=== PATIENT | female | born 1990 | race Caucasian/White ===

== ENCOUNTER 2021-06-30 18:09 | Emergency (ER) | payer OTHER ==
[2021-06-30] MEDS ORDERED: AMOX/CLAV 875 MG/125 MG TABLET PO STA (18:19)
[2021-06-30 18:20] VITALS: BP 137/92
--- NOTE | 2021-06-30 18:20 | ED Physician Documentation ---
PD HPI UPPER EXT INJURY - Stated complaint Stated Complaint: CAT BITE LT HAND - Chief complaint Chief Complaint: Wound - History obtained from History obtained from: Patient (30-year-old woman has two cat bites on the left hand and a small one on the right forearm from a feral cat that she was trying to trap this prior to arrival. She is up-to-date on tetanus.) Review of Systems Constitutional: reports: Reviewed and negative Throat: reports: Reviewed and negative Cardiac: reports: Reviewed and negative Respiratory: reports: Reviewed and negative PD PAST MEDICAL HISTORY - Present Medications Home Medications: Ambulatory Orders Medication Instructions Recorded Confirmed Amox/Clav 875/125 [Augmentin] 1 each PO Q12H #20 tablet 06/30/21 - Allergies Allergies/Adverse Reactions: Allergies Allergy/AdvReac Type Severity Reaction Status Date / Time lisdexamfetamine Allergy Respiratory Verified 06/30/21 18:18 [From Vyvanse] soy Allergy Respiratory Verified 06/30/21 18:18 PD ED PE NORMAL - Vitals Vital signs reviewed: Yes - General General: Alert and oriented X 3, No acute distress - Extremities Extremities: Other (To deep looking puncture wounds between the second and third dorsal metacarpals of the left hand without distal neurovascular compromise or tenderness.) - Neuro Neuro: Alert and oriented X 3, Normal speech Results - Vitals Vitals: Vital Signs - 24 hr 06/30/21 18:18 Temperature 36.7 C Heart Rate 82 Respiratory 18 Rate Blood Pressure 137/92 H O2 Saturation 100 Oxygen O2 Source Room air Departure - Departure Disposition: 01 Home, Self Care Clinical Impression: Cat bite of left hand Qualifiers: Encounter type: initial encounter Qualified Code(s): S61.452A - Open bite of left hand, initial encounter; W55.01XA - Bitten by cat, initial encounter Condition: Good Record reviewed to determine appropriate education?: Yes Instructions: ED Bite Animal General Prescriptions: Amox/Clav 875/125 [Augmentin] 1 each PO Q12H #20 tablet Comments: Return if you develop increased pain, redness, swelling, drainage, fevers. For wound care soap and water and a Band-Aid is really all that she need to do.
== END 2021-06-30 18:35 | disposition home or self-care (01) ==
LOC: ED 18:09
DX: S61.452A Open bite of left hand, initial encounter (principal); S51.852A Open bite of left forearm, initial encounter; W55.01XA Bitten by cat, initial encounter; Y93.89 Activity, other specified
CPT/HCPCS: 99282; 99283; A9270

== ENCOUNTER 2022-03-04 11:08 | Outpatient (CLI) | payer OTHER ==
[2022-03-04 12:01] VITALS: BP 121/81
--- NOTE | 2022-03-04 12:01 | SLEEP CARE CONSULTATION ---
Information from patient questionnaire entered by Jourdan Stanlye MA. I have reviewed and concur with the information entered by Jourdan Stanley MA. This document represents the service I personally performed and the decisions made by , Shayy Mayo ARNP. History of Present Illness Service Date and Time: 03/04/2022 1108 Reason for Visit: New patient (ONSET 08/03/2011, NO PRIOR SS, ) Chief Complaint: reports: Insomnia, Unrefreshed sleep, Fatigue, Frequent aw akenings at night Date of Onset: MOST OF HER LIFE Usual bedtime: 930-1030 PM Time it takes to fall asleep: 20 MIN - 2 HOURS Snores at night: No Observed to quit breathing while asleep: No Sleeps alone due to snoring: No Number of times waking at night: 2-3 Reasons for waking at night: reports: Bathroom, Other (noise, unknown reasons). denies: Choking, Snoring, Gasping for air Toss, Turn, or Twitch while sleeping: Yes (most before she falls asleep) Recalls having dreams: Yes (sometimes; 40-50% of the time) Usually gets out of bed at: 8401-4615 Feels refreshed in the morning: No Morning headache: No Sleepy or fatigued during the day: Yes Ever fallen asleep while driving: No Takes day naps: No Dreams during day naps: No Prior sleep studies: No Additional HPI information: I had the pleasure of seeing CHANTELL STRONG today regarding the possibility of her having a sleep disorder. Her current complaints are insomnia, unrefreshed sleep, fatigue and frequent night awakenings. She states her psychiatrist has sent her here for evaluation because of her daytime fatigue. She states she lays down between 9:30-10:30 PM and it varies on going to sleep but usually about an hour. She has not been told that she snores, gasps for air or pauses in breathing in her sleep. She does wake up 2-3 times a night and she may be able to go back to sleep withing 30-60 minutes on average. - Parasomnia Symptoms Ever been unable to move upon waking from sleep: No Walks in sleep: No Talks in sleep: No Ever acted out dreams in sleep: No Ever felt weak in the knees when startled or emotional: No Bothered by creepy, crawly, restless sensations in legs: No Problems with memory or concentration: Yes (both; has ADHD too) Subjective Initial [place] Sleepiness Scale score: 8 (03/04/2022) Past Medical History Past Medical History: reports: Anxiety, Asthma, Depression, Attention deficit (Inattentive) Social History The patient's occupation is a UNEMPLOYED. Patient is and lives in . Have you smoked in the past 12 months: No Alcohol use: No Caffeine use: Yes Caffeine amount and frequency: 2-3 X DAILY; depends on how well my ADHD meds are working Family History Family history of sleep disordered breathing: Yes Family Hx Sleep Apnea: Mother: Snoring Allergies and Home Medications Drug allergies reviewed: Yes (Latex, Soy) Home medication list reviewed: Yes Allergy and home medication list: Allergies latex Allergy (Verified 06/30/21 18:20) Respiratory soy Allergy (Verified 06/30/21 18:18) Respiratory Medications: Guanfacine 2 mg nightly Belsomra 20 mg nightly Vyvanse 70 mg in AM Trintellix 20 mg in AM Advair 100/50, as needed Albuterol, as needed Review of Systems Weight loss over past 5 years: 60 kat lbs Respiratory: reports: shortness of breath, wheeze Neurological: reports: headaches, head trauma (fell off horse as a child, broke arm, ? hit head (4-5 yrs old)) Psychiatric: reports: Attention Deficit Hyperactivity, anxiety, depression Ear/Nose/Throat: reports: nasal congestion, dry mouth/throat (usually in evening, sometimes in afternoon), wisdom teeth removed. denies: tonsillectomy Endocrine: reports: sluggishness Musculoskeletal: reports: joint pain, back pain, muscle pain or cramping Immunologic: reports: sneezing, allergies to food or environment (soy, grass, pollen, bugs (cockroaches), birds, rodents, cat dander) Physical Exam Vital signs obtained and entered by: STANLEY MARRUFO Blood Pressure: 121/81 (resp 20, pulse 85, right) Cuff size: wrist Heart Rate: 105 O2 Saturation: 96 (paper mask) Height: 5 ft 5 in Weight: 232 lb 8 oz (clothes) Body Mass Index: 38.7 BMI Classification: Obese Neck circumference: 14 (inches) Mouth and throat: normal Soft palate: normal Hard palate: normal Uvula: normal Uvula visualization: 100% Mallampati Class I Tongue: enlarged in size with teeth chaudhary on lateral edges Tonsils: small Neck: normal w/o lymphadenopathy or thyromegaly Heart: regular rate and rhythm Lungs: clear bilaterally Impression and Plan 1. Suspected Obstructive Sleep Apnea-Hypopnea Syndrome, as suggested by a history of frequent awakening during the night, unrefreshed sleep, cognitive impairment, and excessive daytime sleepiness. Narrow oropharynx and obesity are common predisposing factors for obstructive sleep apnea-hypopnea syndrome. I recommend proceeding to polysomnography to confirm the diagnosis and to assess severity. If the patient has significant sleep disordered breathing, a manual CPAP titration study will also be performed to find the optimal treatment pressure. I informed the patient of what the sleep studies involve and after some discussion, obtained agreement to proceed. The pathophysiology of obstructive sleep apnea-hypopnea syndrome was discussed with the patient and health risks of cardiovascular and cerebrovascular disease if not treated. Risks of drowsy driving discussed in detail and patient advised to avoid long distance driving and to dross puller at the first sign of drowsiness. Patient agreed to plan. * Schedule polysomnography * Avoid long distance driving or driving when feeling sleepy. * Avoid alcohol, sedative and muscle relaxant around bedtime. * Attempt to lose weight. * Review instructions provided by trained office staff on how to prepare for the sleep study. * Return for follow-up after sleep study completed. Counseling Topics: Weight loss health impact Visit Type: In Office Time Spent with Patient (minutes): 33 Provider Statement: I spent 100% of the Face to Face Visit with the patient with greater than 50% spent counseling the patient and coordination of care.
== END 2022-03-04 11:09 | disposition home or self-care (01) ==
LOC: SC 11:08
PROVIDERS: ATTEND Nurse Practitioner Family
DX: G47.8 Other sleep disorders (principal); G47.10 Hypersomnia, unspecified; R53.83 Other fatigue; G47.00 Insomnia, unspecified; F32.A Depression, unspecified; E66.9 Obesity, unspecified; Z68.38 Body mass index [BMI] 38.0-38.9, adult
CPT/HCPCS: 99203; 99212

== ENCOUNTER 2023-01-02 19:54 | Emergency (ER) | payer OTHER ==
--- NOTE | 2023-01-02 20:29 | ED Physician Documentation ---
History of Present Illness - Stated complaint Stated Complaint: MHE - Chief complaint Chief Complaint: MHE - Additonal information Additional information: 32-year-old female presents emergency department for sudden suicidal thoughts. Patient has a longstanding history of depression. She states that she simply does not want to be alive anymore. However when she thinks about trying to kill herself she is afraid of any associated pain with the act. She has considered driving her vehicle into another car off the bridge, she is considered taking pills or even using weapons but is afraid of discomfort. She is and does have kids. She is not sure that her children are enough of the factor to keep her living. She has never been hospitalized. She is not certain if she would like to be hospitalized. Denies any drug or alcohol use. She does take Strattera, Rexulti and Trintellix in the management of her depression. She is followed by a psychiatrist but does not currently have a talk therapist. She believes that her psychiatrist was going to increase the dose of the Rexulti shortly. Review of Systems Constitutional: denies: Fever, Chills Nose: reports: Reviewed and negative Throat: reports: Reviewed and negative Cardiac: reports: Reviewed and negative Respiratory: reports: Reviewed and negative Musculoskeletal: reports: Reviewed and negative Neurologic: reports: Reviewed and negative Psychiatric: reports: Depressed, Suicidal, Anxiety. denies: Homicidal, Hallucinations PD PAST MEDICAL HISTORY - Present Medications Home Medications: Ambulatory Orders Medication Instructions Recorded Confirmed Albuterol Sulfate [Proair 90 mcg IH Q6HR PRN 01/02/23 01/02/23 Respiclick] Atomoxetine HCl [Strattera] 80 mg PO DAILY 01/02/23 01/02/23 Brexpiprazole [Rexulti] 0.5 mg PO HS 01/02/23 01/02/23 Cetirizine [ZyrTEC] 10 mg PO DAILY 01/02/23 01/02/23 Vortioxetine Hydrobromide 20 mg PO HS 01/02/23 01/02/23 [Trintellix] - Allergies Allergies/Adverse Reactions: Allergies Allergy/AdvReac Type Severity Reaction Status Date / Time latex Allergy Respiratory Verified 01/02/23 21:09 soy Allergy Respiratory Verified 01/02/23 21:09 - Social History Does the pt smoke?: No Smoking Status: Never smoker PD ED PE NORMAL - General General: Alert and oriented X 3, Well developed/nourished. No: No acute distress (Crying and tearful. Appears anxious) - Neck Neck: Supple, no meningeal sign, No adenopathy - Cardiac Cardiac: RRR, No murmur - Respiratory Respiratory: No respiratory distress, Clear bilaterally - Neuro Neuro: Alert and oriented X 3 Eye Opening: Spontaneous Motor: Obeys Commands Verbal: Oriented GCS Score: 15 - Psych Psych: Normal affect (Crying tearful affect. Endorses that she wants to but is afraid of pain associated with it. Does not necessarily contract for safety but does not have an active plan for SI) Results - Vitals Vitals: Vital Signs - 24 hr 01/02/23 21:14 Heart Rate 97 Respiratory 16 Rate Blood Pressure 142/81 H O2 Saturation 99 Oxygen O2 Source Room air - Labs Labs: Laboratory Tests 01/02/23 01/02/23 01/02/23 20:14 20:26 20:26 WBC 15.7 H RBC 4.39 Hgb 13.7 Hct 42.2 MCV 96.1 MCH 31.2 H MCHC 32.5 RDW 13.1 Plt Count 412 MPV 8.8 Neut # (Auto) 9.8 H Lymph # (Auto) 4.4 H [place] # (Auto) 0.8 Eos # (Auto) 0.6 Baso # (Auto) 0.1 Absolute Nucleated RBC 0.00 Nucleated RBC % 0.0 Sodium 138 Potassium 3.7 Chloride 101 Carbon Dioxide 25 Anion Gap 12.0 BUN 12 Creatinine 0.8 Estimated GFR (MDRD) 83 L Glucose 99 Calcium 8.7 Magnesium 1.8 Total Bilirubin 0.4 AST 22 ALT 28 Alkaline Phosphatase 108 Total Creatine Kinase 201 Total Protein 8.1 Albumin 4.1 Globulin 4.0 Albumin/Globulin Ratio 1.0 Lipase 30 TSH Urine Color YELLOW Urine Clarity HAZY Urine pH 5.5 Ur Specific [place] >=1.030 H Urine Protein NEGATIVE Urine Glucose (UA) NEGATIVE Urine Ketones NEGATIVE Urine Occult Blood NEGATIVE Urine Nitrite NEGATIVE Urine Bilirubin NEGATIVE Urine Urobilinogen 0.2 (NORMAL) Ur Leukocyte Esterase SMALL H Urine RBC 0-5 Urine WBC 6-10 H Ur Squamous Epith Cells MOD Squamous H Urine Bacteria Moderate H Ur Microscopic Review INDICATED Urine Culture Comments NOT INDICATED Urine HCG, Qual NEGATIVE Salicylates < 6.0 Urine Opiates Screen NEGATIVE Ur Oxycodone Screen NEGATIVE Urine Methadone Screen NEGATIVE Ur Propoxyphene Screen NEGATIVE Acetaminophen < 10 L Ur Barbiturates Screen NEGATIVE Ur Tricyclics Screen NEGATIVE Ur Phencyclidine Scrn NEGATIVE Ur Amphetamine Screen NEGATIVE U Methamphetamines Scrn NEGATIVE U Benzodiazepines Scrn NEGATIVE Urine Cocaine Screen NEGATIVE U Cannabinoids Screen NEGATIVE Ethyl Alcohol < 5.0 01/02/23 20:26 WBC RBC Hgb Hct MCV MCH MCHC RDW Plt Count MPV Neut # (Auto) Lymph # (Auto) [place] # (Auto) Eos # (Auto) Baso # (Auto) Absolute Nucleated RBC Nucleated RBC % Sodium Potassium Chloride Carbon Dioxide Anion Gap BUN Creatinine Estimated GFR (MDRD) Glucose Calcium Magnesium Total Bilirubin AST ALT Alkaline Phosphatase Total Creatine Kinase Total Protein Albumin Globulin Albumin/Globulin Ratio Lipase TSH 5.67 H Urine Color Urine Clarity Urine pH Ur Specific [place] Urine Protein Urine Glucose (UA) Urine Ketones Urine Occult Blood Urine Nitrite Urine Bilirubin Urine Urobilinogen Ur Leukocyte Esterase Urine RBC Urine WBC Ur Squamous Epith Cells Urine Bacteria Ur Microscopic Review Urine Culture Comments Urine HCG, Qual Salicylates Urine Opiates Screen Ur Oxycodone Screen Urine Methadone Screen Ur Propoxyphene Screen Acetaminophen Ur Barbiturates Screen Ur Tricyclics Screen Ur Phencyclidine Scrn Ur Amphetamine Screen U Methamphetamines Scrn U Benzodiazepines Scrn Urine Cocaine Screen U Cannabinoids Screen Ethyl Alcohol PD Medical Decision Making - ED course Complexity details: reviewed results, re-evaluated patient, d/w patient ED course: 3 to-year-old female presents emergency department for evaluation of depression and suicidal thoughts. She has no active plan and as she is afraid of pain does not feel that she would act on a plan but despite this has persistent thoughts of wishing she was . She is brought to the emergency department by a friend who Is hoping the patient can get more guidance in helping manage her depression. The patient does not want to be hospitalized at this time. Patient is taking Trintellix, Rexulti and Strattera for history of depression and ADHD. I did obtain the usual routine mental health labs and per my interpretation no acute worrisome findings. I do note a mild leukocytosis which I believe is stress marginalization. Given the late hour the day and the lack of social work at this time we will ask telepsych for evaluation. Patient may benefit from medication adjustment of her current meds. However if patient should wish to discharge from the emergency department voluntarily I feel that she can adequately contract for safety Patient will be signed out to my nighttime colleague to follow-up on any telepsych recommendations or further disposition of the patient
[2023-01-02 20:31] LABS: MUDS CUTOFF CONCENTRATIONS CUTOFF CONC BELOW:
[2023-01-02 20:34] LABS: BASOPHILS # (AUTO) 0.1 10^3/uL (0.0-0.1); BASOPHILS % (AUTO) 0.4 %; EOSINOPHILS # (AUTO) 0.6 10^3/uL (0.0-0.7); EOSINOPHILS % (AUTO) 3.6 %; HCT - HEMATOCRIT 42.2 % (37.0-47.0); HGB - HEMOGLOBIN 13.7 g/dL (12.0-16.0); LYMPHOCYTES # (AUTO) 4.4 10^3/uL (1.5-3.5); LYMPHOCYTES % (AUTO) 28.2 %; MEAN CORPUSCULAR HEMOGLOBIN 31.2 pg (27.0-31.0); MEAN CORPUSCULAR HGB CONC 32.5 g/dL (32.0-36.0); MEAN CORPUSCULAR VOLUME 96.1 fL (81.0-99.0); MEAN PLATELET VOLUME 8.8 fL (7.9-10.8); MONOCYTES # (AUTO) 0.8 10^3/uL (0.0-1.0); MONOCYTES % (AUTO) 4.9 %; NEUTROPHILS # (AUTO) 9.8 10^3/uL (1.5-6.6); NEUTROPHILS % (AUTO) 62.6 %; PLT - PLATELET COUNT 412 10^3/uL (130-450); RED BLOOD COUNT 4.39 10^6/uL (4.20-5.40); RED CELL DISTRIBUTION WIDTH 13.1 % (12.0-15.0); WHITE BLOOD COUNT 15.7 x10^3/uL (4.8-10.8)
[2023-01-02 20:41] LABS: BILIRUBIN,URINE NEGATIVE (NEGATIVE); GLUCOSE, URINE (UA) NEGATIVE (NEGATIVE); KETONES,URINE (UA) NEGATIVE (NEGATIVE); LEUKOCYTE ESTERASE, URINE SMALL (NEGATIVE); NITRITE,URINE NEGATIVE (NEGATIVE); OCCULT BLOOD,URINE NEGATIVE (NEGATIVE); PH,URINE 5.5 PH (5.0-7.5); PROTEIN,URINE NEGATIVE (NEGATIVE); UROBILINOGEN,URINE 0.2 (NORMAL) E.U./dL (NORMAL)
[2023-01-02 20:44] LABS: CLARITY,URINE HAZY (CLEAR); HCG UR QUAL NEGATIVE
[2023-01-02 20:52] LABS: ACETAMINOPHEN < 10 ug/mL (10-30); ALBUMIN 4.1 g/dL (3.2-5.5); ALKALINE PHOSPHATASE 108 IU/L (42-121); ALT ALANINE AMINOTRANSFERASE 28 IU/L (10-60); AST ASPARTATE AMINOTRANSFERASE 22 IU/L (10-42); BILIRUBIN,TOTAL 0.4 mg/dL (0.2-1.0); BUN - BLOOD UREA NITROGEN 12 mg/dL (6-20); CALCIUM 8.7 mg/dL (8.5-10.3); CARBON DIOXIDE - CO2 25 mmol/L (21-32); CHLORIDE 101 mmol/L (101-111); CK- CREATINE KINASE 201 IU/L (22-269); CREATININE 0.8 mg/dL (0.4-1.0); ETOH - ETHANOL < 5.0 mg/dL; GFR - MDRD 83 (>89); GLUCOSE 99 mg/dL (70-100); LIPASE 30 U/L (22-51); MAGNESIUM 1.8 mg/dL (1.7-2.8); POTASSIUM 3.7 mmol/L (3.5-5.0); SALICYLATE < 6.0 mg/dL; SODIUM 138 mmol/L (135-145); TOTAL PROTEIN 8.1 g/dL (6.7-8.2)
[2023-01-02 20:52] LABS: BACTERIA,URINE Moderate /HPF (None Seen); RBC,URINE 0-5 /HPF (0-5); SQUAMOUS EPITHELIAL CELL,UR MOD Squamous (<= Few)
[2023-01-02 21:08] LABS: AMPHETAMINE SCREEN,URINE NEGATIVE (NEGATIVE); BARBITURATE SCREEN,UR NEGATIVE (NEGATIVE); BENZODIAZEPINES SCREEN, URINE NEGATIVE (NEGATIVE); COCAINE SCREEN URINE NEGATIVE (NEGATIVE); METHADONE SCREEN, URINE NEGATIVE (NEGATIVE); METHAMPHETAMINES SCREEN, URINE NEGATIVE (NEGATIVE); OPIATE SCREEN, URINE NEGATIVE (NEGATIVE); OXYCODONE SCREEN, URINE NEGATIVE (NEGATIVE); PROPOXYPHENE SCREEN, URINE NEGATIVE (NEGATIVE); THC CANNABINOID SCREEN, URINE NEGATIVE (NEGATIVE); TRICYCLIC ANTIDEPRESSANT,URINE NEGATIVE (NEGATIVE)
--- NOTE | 2023-01-03 02:26 | ED Physician Documentation ---
ED Addendum - Addendum Addendum: 01/03/23 02:24 Telepsychiatry evaluated the patient. They do not recommend any medication changes. He spoke with the patient's as well. She is able to contract for safety. She is not actively suicidal at this time. He recommends close follow-up with her personal psychiatrist. Patient counseled regarding signs and symptoms for which I believe and urgent re-evaluation would be necessary. Patient with good understanding of and agreement to plan and is comfortable going home at this time This document was made in part using voice recognition software. While efforts are made to proofread this document, sound alike and grammatical errors may occur. Departure - Departure Disposition: Home, Self Care Clinical Impression: Depression Qualifiers: Depression Type: unspecified Qualified Code(s): F32.A - Depression, unspecified Condition: Good Instructions: ED Depression Follow-Up: ES BATES PA [Primary Care Provider] - Within 1 week Comments: Please follow-up as instructed by the telepsychiatrist today. Please follow-up with your therapist, counselor and/or psychiatrist for further care. Please return if you worsen. Crisis Line and is available to talk to someone [email or web address] is also available to chat with someone online if you prefer. There are also many resources on this website and apps for your phone to help with your mental health You can also text the word START to [phone] to chat with someome via text.
--- NOTE | 2023-01-03 02:29 | TELEPSYCH PHYS NOTE ---
Telepsych Consultation Note Consult: Name: Nadia MoralesB: 1990 DateandTime: 01/03/2023 5:22:24 AM [facility] Length of consult: 1 hour This evaluation was conducted via video telepsychiatry with the assistance of onsite staff Reason for consult: SI Requested by: [place] History of Present Illness: Provider/nurse contacted: Dr. Jayden Ramsey Psych consulted for: SI Chief complaint: Severe depression. Psych Consult HPI: Pt is a 32yo F with a past psych hx of depression who presents for SI. Pt admits to SI w/ plan to drive her vehicle into another car off the bridge, she is considered taking pills or even using weapons for a long time. Nothing is going to happen. I am too afraid of pain. Endorses severe depression. Stressors include thinking about the future. Pt has past psych hospitalizations and prior SAs. Denies substance abuse. Pt has been taking Strattera, Rexulti and Trintellix and is not in therapy currently. Denies HI/AVH. Francisco Javier Talbot, , does not believe Pt is a current danger to herself and she is safe to DC home. Per Chart: 32-year-old female presents emergency department for sudden suicidal thoughts. Patient has a longstanding history of depression. She states that she simply does not want to be alive anymore. However when she thinks about trying to kill herself she is afraid of any associated pain with the act. She has considered driving her vehicle into another car off the bridge, she is considered taking pills or even using weapons but is afraid of discomfort. She is and del angel s have kids. She is not sure that her children are enough of the factor to keep her living. She has never been hospitalized. She is not certain if she would like to be hospitalized. Denies any drug or alcohol use. She does take Strattera, Rexulti and Trintellix in the management of her depression. She is followed by a psychiatrist but does not currently have a talk therapist. She believes that her psychiatrist was going to increase the dose of the Rexulti shortly. Collateral Contacted: Regine for not contacting the collateral:No answer , pts Francisco Javier Talbot Sleep issues?: YesSleep Quantity:Pt states that she has to take belsomra in order to sleep. She was taking Guanfacine beforeSleep Quality:poor Psychiatric History/Treatment History: Past diagnoses: Depression, anxiety, ADHD, and Autism Hospitalizations: No Current Treatment:YesMedication management:YesMedications:belsomra, guanfacine. Rexulti, trintellix, stratteraTherapy:No Suicide Assessment: PSS-3: 1) Over the past 2 weeks have you felt down, depressed or hopeless?Yes 2) Over the past 2 weeks have you had thoughts of killing yourself?Yes 3) Have you ever in your life attempted to kill yourself?No Within the past 6 months? PSS-3 Secondary Screen: 1) Positive on PSS-3 questions 2 & 3 active SI with a past attempt?No 2) Have you been thinking about how you might kill yourself?Yes 3) Have you had some intention of acting on your thoughts?No 4) Lifetime psychiatric hospitalization?No 5) Has drinking or substance abuse ever been a problem for you?No 6) Current irritability, agitation, or aggression?No PSS-3 Secondary Screen Scoring: Mild Notes: Mild(0-2) No current attempt and no plan/intent Moderate(3-4) No current attempt, Plan OR intent but not both Severe(5-6) Current Attempt with Plan AND intent [facility] Safety Assessment: Risk Factors Stressors: engaging in mini activities with her kids, losing, and her weight Attempts/Self-injury: No Impulsivity:No Drug/Alcohol History:No Trauma History:No Access to firearms:No HI/Violence/Property destruction:No Legal: No Family Psych History:YesDescription:depression runs in her family Family History of suicide:No Protective Factors: Can handle stress well?No Yazdanism?No External: Social supports/ Therapeutic relationships: YesDescription:her friend, , and psychiatrist Relationship history: Living situation: lives with her two kids and Employment: No Education: GED Responsibility to family/children/work: No Future orientation:No Health History: Medical History: denies Medications & Freq: Rexulti-.5 mg-take once a day Strattera 80 mg Trintellix Belsomra Guanfacine Allergies: denies Mental Status Exam: Appearance and Attire:Normal Psychomotor agitation:No abnormality Attitude and behavior:Cooperative Speech:No abnormality, Mood:Depressed Affect:Not full range of affect, Constricted Thought process:Linear Thought content:Suicidal ideation Perception: Intel:Average Abstract:[place] Language:No abnormality Orientation:Oriented x 4 Sense:Normal Knowledge: Memory:Intact Insight:Appropriate Judgement:Appropriate Gait:No abnormality Impression/Risk Assessment: Current Suicide Risk Elevated?No Current Violence Risk Elevated?No Issues with ability to care for self?No Summary: Clinical impression: Mood d/o NOS Current Suicide Risk: low Current Violence Risk: low Suicide Risk Detail Assessment 3 mo.suic.&self-inj behavior: no actual suicidal attempt Lifetime-suic.&self-inj behavior: no actual suicidal attempt Most severe SI past month: no suicide thoughts Risk Assessment: Pt appears to be low risk for harm to self or others as evidenced by denial of SI/HI/AVH. No delusions, disorganization, aggression noted. Pt is a 32yo F with a past psych hx of depression who presents for SI. Pt denies and plan or intent and is not currently endorsing SI. They have never had a SA or been placed in psych hospital before. Per staff, Pt has been calm, cooperative, logical. Denying SI/HI/AVH. No concerns. Pt states that they feel safe with going home. Pt states they feel confident they will not try to harm themselves. If Pt has any concerns that she is a danger to themselves, * will call 911 or present to the hospital. Pt agrees to Safety Plan: 1. Reduction of lethal means (gun, pills). 2. Family is willing to check Pt frequently and monitor Pt. 3. Has coping plan for worsening SI/depression: talk to someone, call 911, return to ED. 4. Family agrees with plan - Recommendations 1. Pt does not meet criteria for involuntary inpatient psych admission. May be DCd once medically appropriate. 2. Meds - Continue current psych meds. 3. Recommend outpatient f/u psych visit 4. Pt will benefit from counseling resources for post DC. Please consult psychiatry in 24 to 48 hours for reevaluation if considered appropriate. Discussed with provider on duty Thank you for this consult. This note serves as a written report of findings/re commendations and has been made available to the requesting provider. Diagnosis: F39 Unspecified mood [affective] disorder CPT Codes: 13514 Detailed history, exam, moderate complexity medical decision making (25 min) Treatment Plan: General: Level of Care: Discharge Psychiatric Clearance: Yes Observation level 1:1 needed?: No Pharmacological: continue current Patient psychotic?No Therapy: supportive Follow up needed while in the hospital?: No Discussed plan with onsite steamtable worker: Yes Who Dr. Carpenter Other: List names and roles of persons who participated in consult: Dr. Carpenter
[2023-01-03 02:47] VITALS: BP 139/88
== END 2023-01-03 02:46 | disposition home or self-care (01) ==
LOC: ED 19:54
DX: F32.A Depression, unspecified (principal); Z20.822 Contact with and (suspected) exposure to COVID-19
CPT/HCPCS: 36415; 80053; 80306; 80307; 80320; 80329; 81001; 81025; 82550; 83690; 83735; 84443; 85025; 87635; 90834; 99283; 99284; Q3014; 81003; 87086